=== PATIENT | male | born 1960 | race Two or more races ===

== ENCOUNTER → 2022-10-05 | Emergency (ER) | payer OTHER ==
[~2022-10-05] VITALS: Ht 170.2 cm; Wt 72.6 kg
== END | disposition left against medical advice (07) ==
LOC: ER 15:54
DX: R10.9 Unspecified abdominal pain (principal); E11.9 Type 2 diabetes mellitus without complications; N40.0 Benign prostatic hyperplasia without lower urinary tract symptoms; R53.1 Weakness; R19.7 Diarrhea, unspecified; K63.89 Other specified diseases of intestine

== ENCOUNTER 2022-10-09 14:06 | Inpatient (IN) | payer OTHER ==
[~2022-10-09] VITALS: Ht 170.2 cm; Wt 68.0 kg
[2022-10-09] MEDS ORDERED: DEPAKOTE ER500 MG PO (14:14)
[2022-10-09] MEDS ORDERED: LOSARTAN POTASS25 MG PO (14:15)
[2022-10-09] MEDS ORDERED: PHENOBARBITAL15 MG PO (14:15)
--- NOTE | 2022-10-09 14:18 | NUR ---
PACIENTE ALERTA Y ORIENTADO X3, REFIERE DOLOR ABDOMINAL DESDE HACE DUANE SEMANA. SE MONITOREAN VS Y SE UBICA EN OBSERVACION
--- NOTE | 2022-10-09 16:36 | NUR ---
SE EDUCA A PTE SOBRE [place] MEDICO ARGENIS REFIERE ENTENDER. SE RUBY MEUSTRAS DE LABORATORIO UTILZIANDO MEDIDAS ASEPTICAS. SE NOTIFICA ESTUDIO DE CT PO PENDIENTE A REALIZAR.
[2022-10-30] MEDS ORDERED: ELIQUIS5 MG PO (12:23)
[2022-10-30] MEDS ORDERED: TOPROL XL25 M1 PO (12:24)
[2022-10-30] MEDS ORDERED: CARAFATE1 GM PO (12:24)
[2022-10-30] MEDS ORDERED: INTEGRA PLUS C1 EACH PO (12:25)
[2022-10-30] MEDS ORDERED: B COMPLEX1 EACH PO (12:26)
[2022-10-30] MEDS ORDERED: NIFEDIPINE ER30 M1 PO (12:28)
== END 2022-10-30 13:43 | disposition home or self-care (01) | DRG 330 ==
LOC: ER 14:06 → SURG 21:35 → SURH 21:35 → SEC-K 21:35 → SURG 10-10 00:56 → SURH 10-16 10:56
PROVIDERS: Surgery; ADMIT Internal Medicine; ATTEND Internal Medicine
PROC: BW21ZZZ Computerized Tomography (CT Scan) of Abdomen and Pelvis (ICD-10-PCS; 2022-10-10)
PROC: 02HV33Z Insertion of Infusion Device into Superior Vena Cava, Percutaneous Approach (ICD-10-PCS; 2022-10-11)
PROC: 30233N1 Transfusion of Nonautologous Red Blood Cells into Peripheral Vein, Percutaneous Approach (ICD-10-PCS; 2022-10-11)
PROC: BW21YZZ Computerized Tomography (CT Scan) of Abdomen and Pelvis using Other Contrast (ICD-10-PCS; 2022-10-16)
PROC: 07BC4ZZ Excision of Pelvis Lymphatic, Percutaneous Endoscopic Approach (ICD-10-PCS; 2022-10-17)
PROC: 0WBH4ZZ Excision of Retroperitoneum, Percutaneous Endoscopic Approach (ICD-10-PCS; 2022-10-17)
PROC: 0DTF4ZZ Resection of Right Large Intestine, Percutaneous Endoscopic Approach (ICD-10-PCS; principal; 2022-10-17 14:30)
PROC: B54BZZZ Ultrasonography of Right Lower Extremity Veins (ICD-10-PCS; 2022-10-24)
DX: C18.0 Malignant neoplasm of cecum (principal); C78.6 Secondary malignant neoplasm of retroperitoneum and peritoneum; I82.621 Acute embolism and thrombosis of deep veins of right upper extremity; N17.8 Other acute kidney failure; K63.89 Other specified diseases of intestine; D64.89 Other specified anemias; I10 Essential (primary) hypertension; E11.9 Type 2 diabetes mellitus without complications; Z79.4 Long term (current) use of insulin; G40.909 Epilepsy, unspecified, not intractable, without status epilepticus; Z20.822 Contact with and (suspected) exposure to COVID-19

== ENCOUNTER 2022-11-05 13:28 | Emergency (ER) | payer OTHER ==
[~2022-11-05] VITALS: Ht 170.2 cm; Wt 68.0 kg
[~2022-11-05 13:28] MED LIST: B COMPLEX1 EACH PO; CARAFATE1 GM PO; DEPAKOTE ER500 MG PO; ELIQUIS5 MG PO; INTEGRA PLUS C1 EACH PO; LOSARTAN POTASS25 MG PO; NIFEDIPINE ER30 M1 PO; PHENOBARBITAL15 MG PO; TOPROL XL25 M1 PO
[2022-11-05] MEDS ORDERED: LEVOFLOXACIN750 MG PO (21:36)
== END 2022-11-05 22:02 | disposition home or self-care (01) ==
LOC: ER 13:28
DX: N39.0 Urinary tract infection, site not specified (principal); Z88.0 Allergy status to penicillin; Z20.822 Contact with and (suspected) exposure to COVID-19

== ENCOUNTER 2022-11-24 09:40 | Outpatient (CLI) | payer OTHER ==
[~2022-11-24 09:40] MED LIST changes: +LEVOFLOXACIN750 MG PO
== END 2022-11-24 09:55 | disposition home or self-care (01) ==
LOC: RAD 09:40
PROVIDERS: ATTEND Surgery
DX: C18.0 Malignant neoplasm of cecum (principal); R59.0 Localized enlarged lymph nodes; R63.4 Abnormal weight loss

== ENCOUNTER 2022-11-29 07:11 | Outpatient (CLI) | payer OTHER ==
[2022-11-30] MEDS ORDERED: TOPROL XL25 M1 PO (15:37)
[2022-11-30] MEDS ORDERED: ATORVASTATIN CA10 MG PO (15:38)
== END 2022-11-29 07:18 | disposition home or self-care (01) ==
LOC: NUCLEAR 07:11
PROVIDERS: ATTEND Internal Medicine Hematology & Oncology
DX: C18.0 Malignant neoplasm of cecum (principal)
CPT/HCPCS: 78816; A9552

== ENCOUNTER 2022-12-03 05:59 | Day surgery (SDC) | payer OTHER ==
[~2022-12-03 05:59] MED LIST changes: +ATORVASTATIN CA10 MG PO
[2022-12-03] MEDS ORDERED: TRAM1TAB98 PO (12:47)
== END 2022-12-03 16:40 | disposition home or self-care (01) ==
LOC: CIR.AMB 05:59
PROVIDERS: ATTEND Surgery
DX: C18.0 Malignant neoplasm of cecum (principal); Z88.0 Allergy status to penicillin; R63.4 Abnormal weight loss; R59.0 Localized enlarged lymph nodes; G47.30 Sleep apnea, unspecified; F17.210 Nicotine dependence, cigarettes, uncomplicated; E11.9 Type 2 diabetes mellitus without complications; Z20.822 Contact with and (suspected) exposure to COVID-19

== ENCOUNTER → 2022-12-13 12:58 | Outpatient (CLI) | payer OTHER ==
[~2022-12-13 12:58] MED LIST changes: +TRAM1TAB98 PO
== END | disposition home or self-care (01) ==
LOC: LAB 12:58
PROVIDERS: ATTEND Internal Medicine Hematology & Oncology
DX: D50.8 Other iron deficiency anemias (principal); I10 Essential (primary) hypertension; R74.02 Elevation of levels of lactic acid dehydrogenase [LDH]; K76.89 Other specified diseases of liver; E03.8 Other specified hypothyroidism; R97.0 Elevated carcinoembryonic antigen [CEA]; R97.8 Other abnormal tumor markers; R97.20 Elevated prostate specific antigen [PSA]; C18.0 Malignant neoplasm of cecum; G40.909 Epilepsy, unspecified, not intractable, without status epilepticus

== ENCOUNTER 2023-02-27 08:40 | Outpatient (CLI) | payer OTHER | END 2023-02-27 08:45 | disposition home or self-care (01) | LOC: NUCLEAR 08:40 | PROVIDERS: ATTEND Internal Medicine Hematology & Oncology | DX: I82.403 Acute embolism and thrombosis of unspecified deep veins of lower extremity, bilateral (principal); G40.909 Epilepsy, unspecified, not intractable, without status epilepticus; C18.0 Malignant neoplasm of cecum; C78.6 Secondary malignant neoplasm of retroperitoneum and peritoneum ==

== ENCOUNTER 2023-04-09 12:47 | Outpatient (CLI) | payer OTHER | END 2023-04-09 16:28 | disposition home or self-care (01) | LOC: LAB 12:47 | PROVIDERS: ATTEND Internal Medicine Hematology & Oncology | DX: D50.8 Other iron deficiency anemias (principal); I10 Essential (primary) hypertension; R74.02 Elevation of levels of lactic acid dehydrogenase [LDH]; K76.89 Other specified diseases of liver; D69.6 Thrombocytopenia, unspecified; C18.0 Malignant neoplasm of cecum; C78.6 Secondary malignant neoplasm of retroperitoneum and peritoneum; G40.909 Epilepsy, unspecified, not intractable, without status epilepticus; E03.8 Other specified hypothyroidism; R19.7 Diarrhea, unspecified; K91.2 Postsurgical malabsorption, not elsewhere classified ==

== ENCOUNTER 2023-04-15 07:39 | Outpatient (CLI) | payer OTHER | END 2023-04-15 07:51 | disposition home or self-care (01) | LOC: TOM 07:39 | PROVIDERS: ATTEND Internal Medicine Hematology & Oncology | DX: C18.0 Malignant neoplasm of cecum (principal); C78.6 Secondary malignant neoplasm of retroperitoneum and peritoneum; G40.909 Epilepsy, unspecified, not intractable, without status epilepticus; E03.8 Other specified hypothyroidism; R19.7 Diarrhea, unspecified; K92.2 Gastrointestinal hemorrhage, unspecified ==

== ENCOUNTER 2023-05-29 07:06 | Outpatient (CLI) | payer OTHER | END 2023-05-29 07:18 | disposition home or self-care (01) | LOC: NUCLEAR 07:06 | PROVIDERS: ATTEND Internal Medicine Hematology & Oncology | DX: C18.0 Malignant neoplasm of cecum (principal); C78.6 Secondary malignant neoplasm of retroperitoneum and peritoneum; G40.909 Epilepsy, unspecified, not intractable, without status epilepticus; E03.8 Other specified hypothyroidism; R19.7 Diarrhea, unspecified; K91.2 Postsurgical malabsorption, not elsewhere classified | CPT/HCPCS: 78815; A9552 ==

== ENCOUNTER 2023-09-04 06:12 | Outpatient (CLI) | payer OTHER ==
[2023-09-04 07:14] LABS: HEMOGLOBIN 11.9 g/dL (13-16.00); MEAN CELL VOLUME 106.7 fL (80.0-100.00); MEAN CORPUSCULAR HEMOGLOBIN 36.4 pg (27.00-32.0); MEAN CORPUSCULAR HGB CONC 34.1 g/dl (32.0-36.0); PLATELET COUNT 131 K/uL (150-450); RED BLOOD COUNT 3.29 M/uL (4.00-6.00); RED CELL DISTRIBUTION WIDTH 15.5 % (11.5-14.5)
[2023-09-04 08:29] LABS: ALBUMIN 3.2 gm/dL (3.4-5.0); BILIRUBIN TOTAL 0.38 mg/dL (0.3-1.2); CALCIUM 9.1 mg/dL (8.5-10.1); CREATININE SERUM 0.86 mg/dL (0.70-1.30); GFR 89.25; GLOBULINA 3.8 G/DL (2.4-3.5); POTASSIUM 3.82 mEq/L (3.5-5.1); T4 FREE 0.81 NG/ML (0.76-1.46); TSH 4.22 uIU/mL (0.358-3.74)
[2023-09-04 08:31] LABS: PROSTATIC SPECIFIC ANTIGEN 6.66 NG/ML (0.010-4.00)
== END 2023-09-04 06:14 | disposition home or self-care (01) ==
LOC: LAB 06:12
PROVIDERS: ATTEND Internal Medicine Hematology & Oncology
DX: D50.8 Other iron deficiency anemias (principal); I10 Essential (primary) hypertension; R74.02 Elevation of levels of lactic acid dehydrogenase [LDH]; K76.89 Other specified diseases of liver; R97.0 Elevated carcinoembryonic antigen [CEA]; R97.8 Other abnormal tumor markers; R97.20 Elevated prostate specific antigen [PSA]; E03.8 Other specified hypothyroidism; C18.0 Malignant neoplasm of cecum; C78.6 Secondary malignant neoplasm of retroperitoneum and peritoneum; G40.909 Epilepsy, unspecified, not intractable, without status epilepticus; R19.7 Diarrhea, unspecified; K91.2 Postsurgical malabsorption, not elsewhere classified

== ENCOUNTER 2023-12-09 07:17 | Outpatient (CLI) | payer OTHER | END 2023-12-09 07:27 | disposition home or self-care (01) | LOC: TOM 07:17 | PROVIDERS: ATTEND Psychiatry & Neurology Neurology | DX: G40.209 Localization-related (focal) (partial) symptomatic epilepsy and epileptic syndromes with complex partial seizures, not intractable, without status epilepticus (principal) ==

== ENCOUNTER 2024-09-28 10:55 | Outpatient (CLI) | payer OTHER ==
[~2024-09-28 10:55] MED LIST changes: +ACID REDUCER20 M1; +APETIGEN L790 MG/15; +CARBATROL300 MG; +CYANOCOBAL1000 MCG/1 IM; +DIVALPROEX SOD500 M1; +FLUCONAZOLE100 MG PO; +LEVOTHYROXINE50 MCG PO; +Lipitor 10MG TABLET PO; +PANTOPRAZOLE SO40 MG PO; +SYNTHROID50 MCG; +TAMS0.4C; +TAMS0.4C PO; +TEGRETOL200 MG PO
== END 2024-09-28 11:01 | disposition home or self-care (01) ==
LOC: SONOGRAMA 10:55
PROVIDERS: ATTEND Internal Medicine Hematology & Oncology
DX: C18.0 Malignant neoplasm of cecum (principal); C78.6 Secondary malignant neoplasm of retroperitoneum and peritoneum; G40.909 Epilepsy, unspecified, not intractable, without status epilepticus; E03.8 Other specified hypothyroidism; R19.7 Diarrhea, unspecified; K91.2 Postsurgical malabsorption, not elsewhere classified